=== PATIENT | male | born 1980 | race Caucasian/White ===

== ENCOUNTER 2019-12-28 15:45 | Emergency (ER) | payer SELFPAY ==
[~2019-12-28] VITALS: Ht 180.3 cm; Wt 70.0 kg
[2019-12-28 15:56] VITALS: BP 142/102
[2019-12-28] MEDS ORDERED: CEPHALEXIN 250 MG CAPSULE PO ONE (16:15)
[2019-12-28] MEDS ORDERED: LIDOCAINE 1%/EPI 1:100,000 20 ML VIAL. IJ ONE (16:15)
[2019-12-28] MEDS ORDERED: NEOMY/BACITR/POLYMYXIN OINT PACKET. TP ONE (16:15)
[2019-12-28] MEDS ORDERED: CEPH-264 PO (17:03)
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
== END 2019-12-28 17:30 | disposition home or self-care (01) ==
LOC: ER 15:45
DX: S60.551A Superficial foreign body of right hand, initial encounter (principal); W45.8XXA Other foreign body or object entering through skin, initial encounter; Y93.89 Activity, other specified; Y92.89 Other specified places as the place of occurrence of the external cause; Y99.8 Other external cause status
CPT/HCPCS: 96372; 99283